=== PATIENT | male | born 1955 | race American Indian/Alaskan Native ===

== ENCOUNTER 2016-08-15 22:03 | Inpatient (IN) | payer OTHER ==
[2016-08-16 00:10] LABS: Bilirubin,Urine NEG (Negative); Blood,Urine NEG (Negative); Ketones,Urine TR mg/dL (Negative); Leukocyte Esterase,Urine NEG (Negative); Mucus,Urine FEW /HPF; Nitrite,Urine NEG (Negative); Protein,Urine <15 mg/dL mg/dL (Negative); Urobilinogen,Urine < 2.0 mg/dL (<2.0)
[2016-08-16 00:19] LABS: Eosinophils % (Auto) 3.1 % (0.0-4.3); Hematocrit 45.7 % (35.5-45.6); Hemoglobin 14.5 gm/dl (11.8-15.2); Mean Corpuscular HGB Conc 32 % (32-34); Mean Corpuscular Volume 77 fl (84-94); Platelet Count 163 K/mm3 (140-440); Red Blood Count 5.96 M/mm3 (3.65-5.03); Red Cell Distribution Width 12.1 % (13.2-15.2); White Blood Count 4.7 K/mm3 (4.5-11.0)
[2016-08-16 00:21] LABS: Mean Corpuscular Hemoglobin 24 pg (28-32)
[2016-08-16 00:34] LABS: BUN/Creatinine Ratio 21.25; Calcium 9.4 mg/dL (8.4-10.2); Chloride 83.9 mmol/L (98-107); Potassium 4.9 mmol/L (3.6-5.0)
[2016-08-16] MEDS ORDERED: D50W (25GM) IV PRN ×2 (01:19→02:32)
--- NOTE | 2016-08-16 01:24 | Emergency Department Report ---
ED General Adult HPI - General Chief complaint: Hyperglycemia Stated complaint: RT SIDE WEAKNESS Time Seen by Provider: 08/16/16 01:13 Source: patient, RN notes reviewed Mode of arrival: Ambulatory Limitations: No Limitations - History of Present Illness Initial comments: This is a 61-year-old male. He is previously unknown to me. Has a past medical history of zoster, arthritis. No history of diabetes that he is aware of. Presents to the ER complaining of increased weakness, increased thirst, increased urination, hyperglycemia. He reports feeling somewhat off balance. Symptoms are constant for the past few days. They worse with physical exertion , decreased with rest. Positive urinary frequency. No sore throat. No chest pain. No abdominal pain. No nausea, vomiting or diarrhea. Does not subjectively feel like he is experiencing a zoster outbreak now at this time. -: Gradual Severity scale (0 -10): 8 Consistency: constant Improves with: none Worsens with: none Associated Symptoms: malaise, weakness - Related Data Home Medications Medication Instructions Recorded Confirmed Last Taken Cyclobenzaprine [Flexeril] 10 mg PO QHS 08/16/16 08/16/16 08/14/16 Emtricitab/Rilpiviri/Tenof Ala 1 tab PO DAILY 08/16/16 08/16/16 08/15/16 [Odefsey Tablet] Gabapentin [Neurontin] 300 mg PO Q8HR 08/16/16 08/16/16 08/15/16 Ibuprofen [Motrin 600 MG tab] 600 mg PO BID 08/16/16 08/16/16 08/15/16 Lisinopril [Zestril TAB] 10 mg PO QDAY 08/16/16 08/16/16 08/15/16 Allergies Allergy/AdvReac Type Severity Reaction Status Date / Time No Known Allergies Allergy Verified 08/15/16 22:51 ED Review of Systems ROS: Stated complaint: RT SIDE WEAKNESS Other details as noted in HPI Constitutional: malaise, weakness Eyes: denies: eye discharge ENT: denies: epistaxis Respiratory: denies: cough Cardiovascular: denies: chest pain Gastrointestinal: denies: abdominal pain Genitourinary: frequency Musculoskeletal: denies: back pain, arthralgia, myalgia Skin: denies: rash Neurological: weakness, abnormal gait ED Past Medical Hx - Past Medical History Previous Medical History?: Yes Hx Arthritis: Yes (back) Additional medical history: shingles - Surgical History Past Surgical History?: No - Social History Smoking Status: Current Every Day Smoker Substance Use Type: Heroin - Medications Home Medications: Home Medications Medication Instructions Recorded Confirmed Last Taken Type Cyclobenzaprine [Flexeril] 10 mg PO QHS 08/16/16 08/16/16 08/14/16 History Emtricitab/Rilpiviri/Tenof Ala 1 tab PO DAILY 08/16/16 08/16/16 08/15/16 History [Odefsey Tablet] Gabapentin [Neurontin] 300 mg PO Q8HR 08/16/16 08/16/16 08/15/16 History Ibuprofen [Motrin 600 MG tab] 600 mg PO BID 08/16/16 08/16/16 08/15/16 History Lisinopril [Zestril TAB] 10 mg PO QDAY 08/16/16 08/16/16 08/15/16 History ED Physical Exam - General Limitations: No Limitations General appearance: alert, in no apparent distress - Head Head exam: Present: atraumatic, normocephalic - Eye Eye exam: Present: normal appearance, EOMI. Absent: nystagmus - ENT ENT exam: Present: normal exam, mucous membranes dry, normal external ear exam - Neck Neck exam: Present: normal inspection, full ROM. Absent: tenderness, meningismus - Respiratory Respiratory exam: Present: normal lung sounds bilaterally, other (no vesicular lesions are noted on either side of the chest wall.). Absent: respiratory distress, wheezes, rales, rhonchi, stridor, chest wall tenderness - Cardiovascular Cardiovascular Exam: Present: normal rhythm, tachycardia, normal heart sounds. Absent: systolic murmur, diastolic murmur, rubs, gallop - GI/Abdominal GI/Abdominal exam: Present: soft, normal bowel sounds. Absent: distended, tenderness, guarding, rebound, rigid, pulsatile mass - Rectal Rectal exam: Present: deferred - Extremities Exam Extremities exam: Present: normal inspection, full ROM, normal capillary refill. Absent: tenderness, pedal edema, joint swelling, calf tenderness - Back Exam Back exam: Present: normal inspection, full ROM. Absent: tenderness, CVA tenderness (R), CVA tenderness (L), muscle spasm, paraspinal tenderness, vertebral tenderness - Neurological Exam Neurological exam: Present: alert, oriented X3, normal gait, other (Extraocular movements intact. Tongue midline. No facial droop. Facial sensation intact to light touch in the V1, V2, V3 distribution bilaterally. 5 and 5 strength in 4 extremities.. Sensation is intact to light touch in 4 extremities.). Absent : motor sensory deficit - Psychiatric Psychiatric exam: Present: normal affect, normal mood - Skin Skin exam: Present: warm, dry, intact, normal color. Absent: rash ED Course Vital Signs 08/15/16 08/16/16 22:42 01:10 Temperature 98.3 F 98.0 F Pulse Rate 115 H 89 Respiratory 18 18 Rate Blood Pressure 103/77 Blood Pressure 132/83 [Right] O2 Sat by Pulse 100 98 Oximetry - Reevaluation(s) Reevaluation #1: 08/16/16 01:23 Differential diagnosis: Dehydration, hyperglycemia, diabetic ketoacidosis, hyperosmolar state Assessment and plan: 61-year-old male with probable new onset diabetes, with acidosis, hyperglycemia, renal insufficiency, pH of 7.287, pseudohyponatremia, all consistent with new onset diabetic ketoacidosis. The patient walks with a steady gait. His physical exam is not consistent with shingles outbreak at this time. He will be started on IV fluids, insulin bolus , insulin drip. Clinically doubt pneumonia or urinary tract infection. Urinalysis consistent with UTI. X-ray of the chest pending. Case is discussed with the Hospital physician, Dr. Ribera, who accepts the patient to her service. Reevaluation #2: 08/16/16 01:49 patient indicates history of HIV, on highly active antiretroviral therapy, and hypertension. Does not know his CD4 count. He does not know his viral load. ED Medical Decision Making - Lab Data Result diagrams: 08/16/16 00:00 08/16/16 00:00 Vital Signs 08/15/16 08/16/16 22:42 01:10 Temperature 98.3 F 98.0 F Pulse Rate 115 H 89 Respiratory 18 18 Rate Blood Pressure 103/77 Blood Pressure 132/83 [Right] O2 Sat by Pulse 100 98 Oximetry Labs 08/15/16 08/15/16 08/16/16 22:50 23:40 00:00 WBC 4.7 RBC 5.96 H Hgb 14.5 Hct 45.7 H MCV 77 L MCH 24 L MCHC 32 RDW 12.1 L Plt Count 163 Lymph % (Auto) 40.5 H [place] % (Auto) 7.1 Eos % (Auto) 3.1 Baso % (Auto) 1.0 Lymph # 1.9 [place] # 0.3 Eos # 0.1 Baso # 0.0 Seg Neutrophils % 48.3 Seg Neutrophils # 2.3 VBG pH Sodium Potassium Chloride Carbon Dioxide Anion Gap BUN Creatinine Estimated GFR BUN/Creatinine Ratio Glucose POC Glucose > 500 H Calcium Urine Color Straw Urine Turbidity Clear Urine pH 6.0 Ur Specific [place] 1.025 Urine Protein <15 mg/dl Urine Glucose (UA) >=500 Urine Ketones Tr Urine Blood Neg Urine Nitrite Neg Urine Bilirubin Neg Urine Urobilinogen < 2.0 Ur Leukocyte Esterase Neg Urine WBC (Auto) 3.0 Urine RBC (Auto) 3.0 U Epithel Cells (Auto) < 1.0 Urine Mucus Few 08/16/16 08/16/16 00:00 00:00 WBC RBC Hgb Hct MCV MCH MCHC RDW Plt Count Lymph % (Auto) [place] % (Auto) Eos % (Auto) Baso % (Auto) Lymph # [place] # Eos # Baso # Seg Neutrophils % Seg Neutrophils # VBG pH 7.287 L Sodium 122 L Potassium 4.9 Chloride 83.9 L Carbon Dioxide 19 L Anion Gap 24 BUN 34 H Creatinine 1.6 H Estimated GFR 44 BUN/Creatinine Ratio 21.25 Glucose 720 H* POC Glucose Calcium 9.4 Urine Color Urine Turbidity Urine pH Ur Specific [place] Urine Protein Urine Glucose (UA) Urine Ketones Urine Blood Urine Nitrite Urine Bilirubin Urine Urobilinogen Ur Leukocyte Esterase Urine WBC (Auto) Urine RBC (Auto) U Epithel Cells (Auto) Urine Mucus - Radiology Data Radiology results: image reviewed X-ray chest is negative Critical Care Time: Yes Critical care time in (mins) excluding proc time.: 35 Critical care attestation.: If time is entered above; I have spent that time in minutes in the direct care of this critically ill patient, excluding procedure time. Critical Care Time: Critical care time includes multiple bedside evaluations, interpretation of laboratory studies, radiology studies, discussion with consulting services including hospital medicine, time spent managing a new onset patient with diabetic ketoacidosis, with profound metabolic derangement requiring initiation of large volume fluid bolus, an insulin drip. This excludes procedure time. ED Disposition Clinical Impression: DKA (diabetic ketoacidoses), Renal insufficiency Disposition: OP ADMITTED IP TO THIS HOSP Is pt being admited?: Yes Does the pt Need Aspirin: No Condition: Good Instructions: Diabetic Ketoacidosis (ED)
--- NOTE | 2016-08-16 01:42 | History and Physical Report ---
History of Present Illness Date of examination: 08/16/16 History of present illness: 61-year-old man with no medical problems comes emergency room because since Monday he has been experiencing increased thirst, urinating a lot, feeling tired and feels as if his balance is off and weight loss, patient is unable to quantify the weight loss Patient denies chest pain, palpitation, shortness of breath, cough, abdominal pain, hematochezia, dysuria, frequency, focal weakness, dysarthria, fever chills , p hot or cold intolerance, easy bruisability, or rash or bleeding from mucosal membrane, rhinorrhea, epistaxis, earache, tinnitus, blurry vision, eye discharge, anxiety, depression. Other review of systems negative PAST SURGICAL HISTORY: None SOCIAL HISTORY: Smoke half pack a day, no alcohol or drugs FAMILY HISTORY: Diabetes Medications and Allergies Allergies Allergy/AdvReac Type Severity Reaction Status Date / Time No Known Allergies Allergy Verified 08/15/16 22:51 Home Medications Medication Instructions Recorded Confirmed Last Taken Type Cyclobenzaprine [Flexeril] 10 mg PO QHS 08/16/16 08/16/16 08/14/16 History Emtricitab/Rilpiviri/Tenof Ala 1 tab PO DAILY 08/16/16 08/16/16 08/15/16 History [Odefsey Tablet] Gabapentin [Neurontin] 300 mg PO Q8HR 08/16/16 08/16/16 08/15/16 History Ibuprofen [Motrin 600 MG tab] 600 mg PO BID 08/16/16 08/16/16 08/15/16 History Lisinopril [Zestril TAB] 10 mg PO QDAY 08/16/16 08/16/16 08/15/16 History Active Meds: Active Medications Dextrose (D50w (25gm)) 0 ml IV PRN PRN PRN Reason: Hypoglycemia Potassium Chloride/Dextrose/Sod Cl (D5w/0.45% Nacl/Kcl 20 Meq) 20 meq in 1,000 mls @ 125 mls/hr IV DIRECT FADUMO Insulin Human Regular 100 (units/ Sodium Chloride) 100 mls @ 1 mls/hr IV TITR FADUMO; 1 UNITS/HR PRN Reason: Protocol Sodium Chloride (Nacl 0.9% 500 Ml) 2,000 ml IV NOW FADUMO Stop: 08/16/16 03:59 Exam - Physical Exam Narrative exam: Gen. appearance: Patient lying in bed, no apparent distress HEENT: Normocephalic, atraumatic, pupils equally round and reactive to light, extraocular movement intact, and no sclericterus,. No JVD or thyromegaly or nodule,neck supple, no carotid bruit ,mucous membranes moist, no exudate or erythema Heart: S1, S2, regular rate and rhythm Lungs: Clear to auscultation bilaterally, breathing comfortable Abdomen: Positive bowel sounds, nontender, nondistended, no organomegaly Extremity: No edema, cyanosis, clubbing Skin: No rash, nodules, warm, dry Neuro: Oriented 3, cranial nerves II-12 intact, speech is fluent, motor and sensory intact - Constitutional Vitals: Temp Pulse Resp BP Pulse Ox 98.0 F 89 18 132/83 98 08/16/16 01:10 08/16/16 01:10 08/16/16 01:10 08/16/16 01:10 08/16/16 01:10 Results - Labs CBC & Chem 7: 08/16/16 00:00 08/16/16 02:29 Labs: Abnormal lab results 08/15/16 08/16/16 08/16/16 Range/Units 22:50 00:00 00:00 RBC 5.96 H (3.65-5.03) M/mm3 Hct 45.7 H (35.5-45.6) % MCV 77 L (84-94) fl MCH 24 L (28-32) pg RDW 12.1 L (13.2-15.2) % Lymph % (Auto) 40.5 H (13.4-35.0) % VBG pH (7.320-7.420) Sodium 122 L (137-145) mmol/L Chloride 83.9 L (98-107) mmol/L Carbon Dioxide 19 L (22-30) mmol/L BUN 34 H (9-20) mg/dL Creatinine 1.6 H (0.8-1.5) mg/dL Glucose 720 H* (75-100) mg/dL POC Glucose > 500 H (70-105) 08/16/16 Range/Units 00:00 RBC (3.65-5.03) M/mm3 Hct (35.5-45.6) % MCV (84-94) fl MCH (28-32) pg RDW (13.2-15.2) % Lymph % (Auto) (13.4-35.0) % VBG pH 7.287 L (7.320-7.420) Sodium (137-145) mmol/L Chloride (98-107) mmol/L Carbon Dioxide (22-30) mmol/L BUN (9-20) mg/dL Creatinine (0.8-1.5) mg/dL Glucose (75-100) mg/dL POC Glucose (70-105) Assessment and Plan DKA/New onset diabetes Pseudohyponatremia Dehydration Admits medicine Start insulin drip, IV fluids Check serial chemistry, fingersticks Check hemoglobin A1c, start DVT prophylaxis, consult critical care
[2016-08-16] MEDS ORDERED: NACL 0.9% 1000 ML 2,000 ML ONE (01:49)
[2016-08-16 01:54] LABS: Magnesium 2.3 mg/dL (1.7-2.3); Phosphorous 3.1 mg/dL (2.5-4.5)
[2016-08-16 01:55] LABS: Bilirubin,Urine NEG (Negative); Blood,Urine NEG (Negative); Ketones,Urine TR mg/dL (Negative); Leukocyte Esterase,Urine NEG (Negative); Mucus,Urine FEW /HPF; Nitrite,Urine NEG (Negative); Protein,Urine <15 mg/dL mg/dL (Negative); Urobilinogen,Urine < 2.0 mg/dL (<2.0); WBC,Urine < 1.0 /HPF (0.0-6.0)
[2016-08-16] MEDS ORDERED: D5W/0.45% NACL/KCL 20 MEQ 20 MEQ/1,000 ML BAG IV SCH ×3 (02:00→09:00)
[2016-08-16] MEDS ORDERED: NACL 0.9% 500 ML IV SCH (02:00)
[2016-08-16] MEDS ORDERED: NovoLIN R 100 UNITS in NACL 0.9% 99 ML IV SCH (02:00)
[2016-08-16 02:23] LABS: B-Hydroxybutyrate 17.7 mg/dL (0.2-2.8)
--- NOTE | 2016-08-16 02:26 | Admit Criteria Form ---
Admission Criteria Documentation: DIABETES Clinical Indications for Admission to Inpatient Care (Place 'X' for any and all applicable criteria): Admission is indicated by presence of ALL (if I & II) or ANY ONE (if III or IV) of the following (1)(2)(3)(4): [ X]I. Diabetes is uncontrolled as indicated by ANY ONE of the following: [ Xa) Diabetic ketoacidosis as indicated by ALL of the following (8): [ X]i) Hyperglycemia (eg, plasma glucose greater than 200 mg /dL (11.1 mmol/L)) [X ]ii) Acidosis (eg, arterial pH less than 7.30, serum bicarbonate level less than 15 mEq/L (mmol/L)) [ X]iii) Moderate ketonuria or ketonemia [ ]b) Hyperglycemic hyperosmolar state as indicated by ALL of the following(9)(10): [ ]i) Neurologic dysfunction (eg, stupor, coma, hemiparesis , seizure)(13) [ ]ii) Plasma glucose greater than 600 mg/dL (33.3 mmol/L) [ ]iii) Serum osmolality greater than 320 mOsm/kg (mmol/kg) [ ]c) Severe signs or symptoms secondary to hyperglycemia indicated by ANY ONE of the following: [ ]i) Altered mental status(10) [ ]ii) Significant hypovolemia or dehydration [ ]iii) Intractable nausea or vomiting [ ]iv) Unexplained fever or severe infection [ ]v) Severe electrolyte abnormality (eg, hypokalemia, hyperkalemia, hypernatremia) [ X]II. Management at other levels of care (Also use Diabetes: Observation Care as appropriate) is not feasible because of ANY ONE of the following: [ X]a) Condition was not adequately corrected with treatment at other levels of care. [ ]b) Treatment at other levels of care is not appropriate because of condition severity (eg, hyperosmolar coma). [ ]III. Contraindications and/or Inappropriate clinical situations for Observational Care in patients with Diabetes, when ANY ONE of the following is required: [ ]a) Patient require specific diagnostic workup or therapeutic intervention 22 [ ]b) Patient with abnormal vital signs or altered mental status 23 [ ]IV. General contraindications and/or Inappropriate clinical situations for Observational Care in patients with Diabetes, when ANY ONE of the following is required: [ ]a) Prediction of prolongation of LOS based on ANY ONE of the following may be considered as a contraindication for observational care 2, 3, 4, 5, 6, 7, 8, 9, 10, 11 [ ]i) Age > 65 yrs. [ ]ii) Patient arriving by ambulance [ ]iii) Patient with high acuity [ ]iv) Patient requiring vital sign monitoring [ ]v) Patient on IV medication [ ]b) Systolic blood pressures 180mmHg 3,12 [ ]c) Patient with altered mental status including delirium and other alteration of consciousness, (3) [ ]d) Patient whose discharge disposition will be to a usp home or rehabilitation home should not be managed in Emergency Department Observation Unit. CMS rule requires 3 days hospital stay before such placement.3,13 [ ]e) Patient with failure to thrive due to broad array of etiologies 3,16,17 [ ]f) Inability to ambulate 3,14 Extended stay beyond goal length of stay may be needed for(3)(20): [ ]a) Treatment of precipitating causes [ ]b) Development of hypoglycemia [ ]c) Complications of treatment [ ]d) Complications of decompensated diabetes (eg, acute gastric dilatation, persistent metabolic or neurologic derangement) [ ]e) Active Comorbidities [ ]f) Older patients( 65 years or older) The original [employer] content created by [employer] has been revised. The portions of the content which have been revised are identified through the use of italic text or in bold,and [facility] [employer] has neither reviewed nor approved the modified material. All other unmodified content is copyright [employer]. Please see references footnoted in the original [facility] edition 2016 Admission Criteria Met: Yes
[2016-08-16] MEDS ORDERED: TYLENOL PO PRN (02:32)
[2016-08-16] MEDS ORDERED: DULCOLAX PR PRN (02:32)
[2016-08-16] MEDS ORDERED: MILK OF MAGNESIA PO PRN (02:32)
[2016-08-16] MEDS ORDERED: ALUM-MAG HYDROX-SIMETH 200-200-20MG/5ML PO PRN (02:32)
[2016-08-16 02:52] LABS: BUN/Creatinine Ratio 22.66; Calcium 8.7 mg/dL (8.4-10.2); Chloride 85.5 mmol/L (98-107)
[2016-08-16] MEDS ORDERED: NACL 0.9% 1000 ML 1,000 ML IV SCH (03:00)
[2016-08-16 05:00] LABS: BUN/Creatinine Ratio 20.66; Calcium 8.6 mg/dL (8.4-10.2); Chloride 94.1 mmol/L (98-107); Potassium 3.9 mmol/L (3.6-5.0)
[2016-08-16] MEDS: NEURONTIN PO SCH ×3 (06:40→23:07)
[2016-08-16] MEDS ORDERED: NEURONTIN ONE (06:43)
[2016-08-16] MEDS ORDERED: NACL 0.9% 1000 ML 1,000 ML ONE (06:44)
--- NOTE | 2016-08-16 07:33 | XRay Report ---
AP CHEST: HISTORY: Diabetic ketoacidosis, pneumonia. AP view of the chest demonstrates a normal mediastinal and cardiac contour with clear lungs and normal bony and soft tissue structures. IMPRESSION: Unremarkable AP chest.
--- NOTE | 2016-08-16 08:14 | Event Note ---
Date: 08/16/16 Patient Jeovanny. He is seen and examined.To go to ICU when bed availlable
[2016-08-16 08:50] LABS: Anion Gap 21 mmol/L; BUN/Creatinine Ratio 21.53; Blood Urea Nitrogen 28 mg/dL (9-20); Carbon Dioxide 17 mmol/L (22-30); Chloride 102.6 mmol/L (98-107); Glucose 200 mg/dL (75-100); Potassium 3.7 mmol/L (3.6-5.0); Sodium 137 mmol/L (137-145)
[2016-08-16] MEDS: LOVENOX SUB-Q SCH (09:42)
[2016-08-16] MEDS ORDERED: LOVENOX SUB-Q SCH (10:00)
[2016-08-16 10:11] LABS: Anion Gap 19 mmol/L; BUN/Creatinine Ratio 21.66; Blood Urea Nitrogen 26 mg/dL (9-20); Calcium 8.7 mg/dL (8.4-10.2); Carbon Dioxide 19 mmol/L (22-30); Chloride 104.2 mmol/L (98-107); Glucose 130 mg/dL (75-100); Potassium 3.7 mmol/L (3.6-5.0); Sodium 138 mmol/L (137-145)
--- NOTE | 2016-08-16 12:12 | Consultation ---
History of Present Illness Consult date: 08/16/16 Requesting physician: SAMY JUAREZ Reason for consult: other (DKA) History of present illness: PULMONARY CONSULT NOTE (Full dictation # [id number]) Please see dictated notes for full details Medications and Allergies Allergies Allergy/AdvReac Type Severity Reaction Status Date / Time No Known Allergies Allergy Verified 08/15/16 22:51 Home Medications Medication Instructions Recorded Confirmed Last Taken Type Cyclobenzaprine [Flexeril] 10 mg PO QHS 08/16/16 08/16/16 08/14/16 History Emtricitab/Rilpiviri/Tenof Ala 1 tab PO DAILY 08/16/16 08/16/16 08/15/16 History [Odefsey Tablet] Gabapentin [Neurontin] 300 mg PO Q8HR 08/16/16 08/16/16 08/15/16 History Ibuprofen [Motrin 600 MG tab] 600 mg PO BID 08/16/16 08/16/16 08/15/16 History Lisinopril [Zestril TAB] 10 mg PO QDAY 08/16/16 08/16/16 08/15/16 History Active Meds: Active Medications Acetaminophen (Tylenol) 650 mg PO Q6H PRN PRN Reason: Pain Al Hydrox/Mg Hydrox/Simethicone (Alum-Mag Hydrox-Simeth 699-261-20cw/5ml) 30 ml PO Q4H PRN PRN Reason: Indigestion Bisacodyl (Dulcolax) 10 mg [place] QDAY PRN PRN Reason: constipation unrelieved by MOM Enoxaparin Sodium (Lovenox) 40 mg SUB-Q QDAY@1000 FADUMO Last Admin: 08/16/16 09:42 Dose: 40 mg Gabapentin (Neurontin) 300 mg PO Q8HR FADUMO Last Admin: 08/16/16 06:40 Dose: 300 mg Insulin Human Regular 100 (units/ Sodium Chloride) 100 mls @ 1 mls/hr IV TITR FADUMO; 1 UNITS/HR PRN Reason: Protocol Sodium Chloride (Nacl 0.9% 1000 Ml) 1,000 mls @ 150 mls/hr IV DIRECT FADUMO Last Admin: 08/16/16 06:30 Dose: 150 mls/hr Potassium Chloride 10 meq/ (Sodium Chloride) 1,005 mls @ 125 mls/hr IV DIRECT FADUMO Insulin Human Isoph/Insulin Regular (Novolin 70/30) 20 unit SUB-Q BIDDIAB FADUMO Magnesium Hydroxide (Milk Of Magnesia) 30 ml PO Q4H PRN PRN Reason: Constipation Physical Examination Vital signs: Vital Signs Temp Pulse Resp BP Pulse Ox 98.3 F 115 H 18 103/77 100 08/15/16 22:42 08/15/16 22:42 08/15/16 22:42 08/15/16 22:42 08/15/16 22:42 Results - Laboratory Findings CBC and BMP: 08/16/16 00:00 08/16/16 09:44 Abnormal lab findings: Abnormal Labs 08/16/16 08/16/16 08/16/16 04:38 06:36 07:34 Sodium 127 L Chloride 94.1 L Carbon Dioxide 19 L BUN 31 H Glucose 553 H* POC Glucose 313 H 207 H 08/16/16 08/16/16 08/16/16 07:42 08:35 09:34 Sodium Chloride Carbon Dioxide 17 L BUN 28 H Glucose 200 H POC Glucose 146 H 141 H 08/16/16 08/16/16 08/16/16 09:44 10:36 11:39 Sodium Chloride Carbon Dioxide 19 L BUN 26 H Glucose 130 H POC Glucose 160 H 159 H
[2016-08-16] MEDS: KCL 10 MEQ in NACL 0.45% 1000 ML 1,000 ML IV SCH (12:33)
[2016-08-16 17:50] LABS: Anion Gap 12 mmol/L; Blood Urea Nitrogen 24 mg/dL (9-20); Calcium 8.6 mg/dL (8.4-10.2); Carbon Dioxide 24 mmol/L (22-30); Glucose 300 mg/dL (75-100); Sodium 131 mmol/L (137-145)
[2016-08-16] MEDS: NOVOLOG SUB-Q SCH ×2 (17:52→23:09)
--- NOTE | 2016-08-17 01:19 | Consultation ---
CONSULTING PHYSICIAN: Kim Ribera MD REASON FOR CONSULTATION: Diabetic ketoacidosis. CHIEF COMPLAINT AND HISTORY OF PRESENT ILLNESS: The patient is a 61-year-old -[place] male with past medical history most significant for what he tells me for a diagnosis of being HIV positive. He states he is on highly active antiretroviral therapy and his last HIV RNA was undetectable. He does not remember what his CD4 count was. He came into the Emergency Room essentially complaining of polydipsia, polyuria, generalized weakness. In the ER, he was found to be in diabetic ketoacidosis. He denied any fevers or chills. Denied any open sores or wounds to his body. Denied any cough or expectoration. When I stopped by to see him, he was lying in bed on IV insulin drip at 3 units per hour. Now, he does have a 20+ pack year tobacco smoking history and continued to smoke up until this admission. That really is as much of the history of presentation as I have. PAST MEDICAL HISTORY: HIV positive, also a history of herpes zoster and arthritis. PAST SURGICAL HISTORY: Denies. MEDICATIONS: He was on at the time I stopped by to see him, according to the medication administration record included the following: Tylenol 650 mg p.o. q. 6 hours p.r.n. pain, Lovenox 40 mg subcutaneous daily, Neurontin 300 mg p.o. q. 8 hours, insulin IV at 3 units per hour. He had sodium chloride with K plus 10 mEq running at 125 mL per hour. ALLERGIES: No known drug allergies. DIET: Thin, almost cachectic looking gentleman. Denies any acute weight loss or gain in the preceding few weeks to months. FAMILY AND SOCIAL HISTORY: Lives in the community, 20+ pack year tobacco smoking history. Denies alcohol or illicit drug use or abuse. There is a family history of diabetes in his mom. REVIEW OF SYSTEMS: No loss of consciousness. No new onset seizures. No new onset focal weakness. No gross hematochezia or melena. No gross hematuria or dysuria. No hematemesis. No hemoptysis. No palpitations. Complete review of systems obtained. Pertinent positives and/or negatives as in body of history above, otherwise noncontributory. Of note, the patient denies any occupational exposures to any known pulmonary toxins. PHYSICAL EXAMINATION: VITAL SIGNS: At presentation, he was afebrile, temperature 98.3, pulse 115, respiratory rate 18, blood pressure 103/77, oxygen sats were 100%, inspired oxygen concentration was not recorded. HEAD, EYES, EARS, NOSE, AND THROAT: Pupils are equal, round, about 3 mm, reactive to light. Extraocular muscle movements are intact. Grossly, no palpable lymph nodes in the supraclavicular or submandibular lymph node chains. LUNGS: Auscultation of both lung stover revealed inspiratory rales, left greater than right. Slightly prolonged expiratory phase. No wheezing. HEART: Heart sounds 1 and 2 were heard, regular rate and rhythm at the time of my evaluation. ABDOMEN: Soft, flat. Bowel sounds positive. Nontender. EXTREMITIES: Without overt digital clubbing, cyanosis, or pedal edema. He has a mill laborer's hand so to say with some mild enlargement of the carpal and metacarpal joints. NEUROLOGIC: The exam was nonfocal. LABORATORY DATA: From my review are as follows: White cell count 4700, hemoglobin 14.5, hematocrit 45.7, platelets 163. Venous blood gas showed a pH of 7.29. Serum sodium was 121, potassium 5.0, chloride 86, bicarbonate 19, BUN was 34, creatinine 1.5, glucose was 903. Hemoglobin A1c was 13.5. Urinalysis was negative for nitrites and leukocyte esterase. Serum ketones are elevated at 17.7. Radiographic studies have been reviewed. I have also reviewed the radiologist's interpretation. While I do not see any acute processes, there is some hyperlucency particularly in the right upper lobe but bilateral that suggests an element of hyperinflation. ASSESSMENT AND PLAN: We have an elderly gentleman in with new onset diabetes and diabetic ketoacidosis. He is doing better. We should be able to transition him to a long-acting insulin and get him off the IV insulin drip. Hopefully, he can be transferred to the telemetry floor. I am bothered by the inspiratory crackles especially with his tobacco smoking history. I have told him I think he will benefit from outpatient pulmonary function testing plus or minus further imaging. I have advised him to let his infectious disease doctors know that he has now been diagnosed with diabetes and so that they can check for any drug-drug interactions, especially as regards to his pancreas, tobacco cessation has been counseled. He is appropriately on DVT prophylaxis. He will be placed on GI prophylaxis. Flu and pneumonia vaccination will be per protocol. Thank you very much for the consult, Dr. Ribera. We will follow along. We will make further recommendations as picture progresses/becomes clearer. JOB# [id number] GRAYSON/LORENA
[2016-08-17] MEDS: KCL 10 MEQ in NACL 0.45% 1000 ML 1,000 ML IV SCH (02:08)
[2016-08-17 02:14] LABS: BUN/Creatinine Ratio 18.18; Blood Urea Nitrogen 20 mg/dL (9-20); Calcium 8.8 mg/dL (8.4-10.2); Carbon Dioxide 20 mmol/L (22-30); Chloride 99.9 mmol/L (98-107); Glucose 220 mg/dL (75-100); Potassium 3.6 mmol/L (3.6-5.0)
[2016-08-17 02:42] LABS: Anion Gap 16 mmol/L; Sodium 132 mmol/L (137-145)
[2016-08-17] MEDS: NEURONTIN PO SCH (05:37)
[2016-08-17 09:59] VITALS: BP 126/92
[2016-08-17] MEDS ORDERED: PEPCID PO SCH (10:00)
[2016-08-17] MEDS: LOVENOX SUB-Q SCH (10:34)
[2016-08-17] MEDS: NOVOLOG SUB-Q SCH (10:35)
--- NOTE | 2016-08-17 11:06 | Discharge Summary ---
Providers - Providers Date of Admission: 08/16/16 02:32 Date of discharge: 08/17/16 Attending physician: NAGI VELOZ Primary care physician: CORE MOUNTER Hospitalization Condition: Good Disposition: DISCHARGED TO HOME OR SELFCARE - Discharge Diagnoses (1) DKA (diabetic ketoacidoses) Status: Acute Qualifiers: Diabetes mellitus type: D Diabetes mellitus complication detail: D (2) New onset type 2 diabetes mellitus Status: Acute Core Measure Documentation - Palliative Care Palliative Care/ Comfort Measures: Not Applicable Exam - Constitutional Vitals: Temp Pulse Resp BP Pulse Ox 98.6 F 86 86 H 126/92 100 08/17/16 06:50 08/17/16 06:50 08/17/16 06:50 08/17/16 06:50 08/17/16 06:50 Plan Activity: no restrictions Diet: low fat, low cholesterol, diabetic Additional Instructions: 1.Follow up with PCP in 1 week. 2.Check fingerstick glucose twice daily and show log to PCP Follow up with: PRIMARY CARE, [Primary Care Provider] - 3-5 Days Prescriptions: Insulin NPH/Regular [NovoLIN 70/30] 20 unit SUB-Q BIDDIAB #1 vial
[2016-08-17 12:12] LABS: Cholesterol 170 mg/dL (50-199); HDL Cholesterol 32 mg/dL (40-59); LDL Cholesterol,Direct TNR mg/dL (50-130); Triglycerides 624 mg/dL (2-149)
--- NOTE | 2016-08-22 09:20 | Query- General ---
Marlon Marie____Jodi Date:____08/22/16 Bilingual Sales Consultant/CDS:____Joshua/ Dee Phone#:___[phone] Exercise your independent professional judgment when responding to this query. Questions asked do not imply a particular answer is desired or expected. We greatly appreciate your clarification on this issue. Clinical Documentation States: 61 year old male was admitted on 08/16/16. The consult note(08/16/16) states " Past medical history most significant for what he tells me for diagnosis of being HIV positive. He sates he is on highly active antiretroviral therapy and his last HIV RNA was undetectable " Given the above clinical scenario can you please provide an appropriate diagnosis based on your knowledge of the patient: Please clarify the HIV status of the patient: PHYSICIAN RESPONSE: [ ] AIDS [ ] HIV Disease [ ] HIV asymptomatic [ ] Other (please specify) [ ] Clinically undeterminable [ ] Not applicable Present on Admission: [ ] Yes (Y) [ ] Clinically undeterminable (W) [ ]No(N) Please also document response in your Progress Notes and/or Discharge Summary and indicate if the condition was present on admission. MTDD
--- NOTE | 2016-08-22 11:21 | Query- Renal Failure ---
Deamel Yarbrough Date:____08/22/16 Ocean Freight Forwarder/CDS:___Joshua / sheldon Phone#:___[phone] Exercise your independent professional judgment when responding to query. Questions asked do not imply a particular answer is desired or expected. We greatly appreciate your clarification on this issue. Clinical Documentation States: 61 year old male was admitted on 08/16/16. The patient comes to the ER for increased thirst and urination. The H&P states " Assessment and plan: dehydration " Clinical Findings Show: 08/16/16 08/17/16 Creatinine: 1.6 1.1 Please clarify if you mean: Acute Renal Failure with or due to: [ ] Tubular Necrosis [ ] Medullary Necrosis [ ] Vasomotor Nephropathy [ ] Shock Kidney [ ] Tubular Nephrosis [ ] Renal Tubular Stasis [ ] Cortical Necrosis [ ] Acute Renal Failure (unspecified) [ ] Lower Tubular Nephrosis [ ] Other: [ ] Not Applicable Present on Admission: [ ] Yes (Y) [ ] Clinically undeterminable (W) [ ] No (N) Please also document response in your Progress Notes and/or Discharge Summary and indicate if the condition was present on admission. MTDD
== END 2016-08-17 14:50 | disposition home or self-care (01) | DRG 638 ==
LOC: ED 22:03 → CC1 08-16 02:32 → 3A 08-16 12:00
PROVIDERS: ADMIT Internal Medicine; ATTEND Internal Medicine
DX: E13.10 Other specified diabetes mellitus with ketoacidosis without coma (principal); N39.0 Urinary tract infection, site not specified; F17.200 Nicotine dependence, unspecified, uncomplicated; E86.0 Dehydration; M62.81 Muscle weakness (generalized); M19.90 Unspecified osteoarthritis, unspecified site; N28.9 Disorder of kidney and ureter, unspecified; Z82.49 Family history of ischemic heart disease and other diseases of the circulatory system; Z79.899 Other long term (current) drug therapy; Z83.3 Family history of diabetes mellitus
CPT/HCPCS: 36415; 71010; 80048; 80061; 81001; 82010; 82805; 82962; 83036; 83735; 84100; 85025; 96361; 96365; 96366; J1650; J1815; J3480; J7030